=== PATIENT | male | born 1990 | race Hispanic/Latino ===

== ENCOUNTER 2019-09-02 03:14 | Emergency (ER) | payer OTHER ==
[~2019-09-02] VITALS: Ht 165.1 cm; Wt 99.8 kg
[2019-09-02 04:28] LABS: INFLUENZAE A&B ANTIGEN (RAPID) NEGATIVE (NEGATIVE); STREPTOCOCCUS GRP A ANTIGEN POSITIVE (NEGATIVE)
--- NOTE | 2019-09-02 04:48 | Diagnostic Imaging Report ---
EXAMINATION: CHEST 2 VIEWS INDICATION: Fever, cough. COMPARISON: None FINDINGS: TUBES and LINES: None. LUNGS: Low lung volumes. There is no evidence of pneumonia or pulmonary edema. PLEURA: No pleural effusion or pneumothorax. HEART AND MEDIASTINUM: No cardiomegaly. Likely prominent pericardiac fat pad on the right. BONES AND SOFT TISSUES: No acute osseous lesion. Soft tissues are unremarkable. UPPER ABDOMEN: No free air under the diaphragm. IMPRESSION: No acute thoracic abnormality. Signed by: Dr. Emiliana Burgess MD on 09/02/2019 4:45 AM
[2019-09-02] MEDS: PENICILLIN G BENZATHINE LA 1.2 MU TBX IM STA (04:50)
== END 2019-09-02 05:15 | disposition home or self-care (01) ==
LOC: ER 03:14
DX: R05 Cough (principal); J02.0 Streptococcal pharyngitis
CPT/HCPCS: 71046; 83518; 87400; 99283; J0561

== ENCOUNTER 2019-11-07 15:59 | Emergency (ER) | payer OTHER ==
[~2019-11-07] VITALS: Ht 165.1 cm; Wt 99.8 kg
--- OUTSIDE RECORDS SUMMARY | 2019-11-07 16:03 | XMS REPORT ---
Author Author [facility] t Organization [facility] Address [address] [place] [address] Phone Unavailable Care Team Providers Care Grease Buffer Name Role Phone NONSTAFF PCP Unavailable Payers Payer Name Policy Type Policy Number Effective Date Expiration Date S ource Problems This patient has no known problems. Allergies, Adverse Reactions, Alerts Allergy Name Allergy Type Status Severity Reaction(s) Onset Date Inacti ve Date Treating Clinician Comments Source No Known Allergies DA Active U 2019-07-27 00:00:00 [facility] No Known Allergies DA Active U 2018-04-04 00:00:00 [facility] No Known Allergies DA Active U 2016-04-20 00:00:00 [facility] Medications This patient has no known medications. Procedures Procedure Date / Time Performed Performing Clinician Sour e X-ray of chest, two views 2019-09-02 00:00:00 SEE MACKEY [facility] Encounters Start Date/Time End Date/Time Encounter Type Admission Type [facility] Care Department Encounter ID Source 2019-09-02 03:14:00 2019-09-02 05:15:00 Departed Emergency Room [facility] [id number] [facility] Results Test Description Test Time Test Comments Results Result Comments Source CHEST 2 VIEWS 2019-09-02 04:40:00 [facility] [address] [place], [place] [address] Patient Name: BATSHEVA DAMICO MR #: [id number] : 1990 Age/Sex: 29/M Req #: [id number] Adm Physician: Ordered by: SEE MACKEY DO Report #: [id number] Location: ER Room/Bed: Procedure: [id number] DX/CHEST 2 VIEWS Exam Date: 09/02/19 Exam Time: 414 REPORT STATUS: Signed EXAMINATION: CHEST 2 VIEWS INDICATION: Fever, cough. COMPARISON: None FINDINGS: TUBES and LINES: None. LUNGS: Low lung volumes. There is no evidence of pneumonia or pulmonary edema. PLEURA: No pleural effusion or pneumo thorax. HEART AND MEDIASTINUM: No cardiomegaly. Likely prominent pericardiac fat pad on the right. BONES AND SOFT TISSUES: No acute osseous lesion. Soft tissues are unremarkable. UPPER ABDOMEN: No free air under the diaphragm. IMPRESSION: No acute thoracic abnormality. Signed by: Dr. Tremaine Boston MD on 09/02/2019 4:45 AM Dictated By: TREMAINE BOSTON MD 4 Transcribed By: PATRICIO on 09/02/19444 COPY TO: SEE MACKEY DO Influenza Virus Types A,B Antigen 2019-09-02 04:28:00 Test Item Influenza Virus Types A,B Antigen (test code = 27328-8) [facility]IVE [facility] [id number] 04:28:00* Test Item Value Reference Range Interpretation Comments Group A Streptococcus Screen (test code = 17957-0) POSITIVE NEG ATIVE [facility] [id number] 20:34:00 * Test Item Value Reference Range Interpretation Comments SODIUM (test code = NA) 140 mmol/L 136-145 N POTASSIUM (test code = K) 3.6 mmol/L 3.5-5.1 N CHLORIDE (test code = CL) 108.0 mmol/L 98-107 H CARBON DIOXIDE (test code = CO2) 25.0 mmol/L 21-32 N ANION GAP (test code = GAP) 10.6 10-20 N GLUCOSE (test code = GLU) 83 mg/dL 74-106 N BLOOD UREA NITROGEN (test code = BUN) 13 mg/dL 7-18 N GLOMERULAR FILTRATION RATE (test code = GFR) > 60 mL/min >=60 Estimated GFR by using Modified MDRD formula.Chronic kidney disease is defined as either kidney damageor GFR <60 mL/min/1.73 m2 for >3 months. CREATININE (test code = CREAT) 0.70 mg/dL 0.7-1.3 N BUN/CREATININE RATIO (test code = BUN/CREA) 18.6 10-20 N CALCIUM (test code = CA) 8.8 mg/dL 8.5-10.1 N [id number] 20:34:00* Test Item Value Reference Range Interpretation Comments TROPONIN-I (test code = TROPI) <0.015 ng/mL 0-0.045 N BASIC METABOLIC [id number] 20:25:00* Test Item Value Reference Range Interpretation Comments SODIUM (test code = NA) 140 mmol/L 136-145 N POTASSIUM (test code = K) 3.6 mmol/L 3.5-5.1 N CHLORIDE (test code = CL) 108.0 mmol/L 98-107 H CARBON DIOXIDE (test code = CO2) mmol/L 21-32 ANION GAP (test code = GAP) 10-20 GLUCOSE (test code = GLU) mg/dL 74-106 BLOOD UREA NITROGEN (test code = BUN) mg/dL 7-18 GLOMERULAR FILTRATION RATE (test code = GFR) mL/min >=60 CREATININE (test code = CREAT) mg/dL 0.7-1.3 BUN/CREATININE RATIO (test code = BUN/CREA) 10-20 CALCIUM (test code = CA) 8.8 mg/dL 8.5-10.1 N [id number] 20:25:00* Test Item Value Reference Range Interpretation Comments TROPONIN-I (test code = TROPI) ng/mL 0-0.045 CBC W/O [id number] 20:17:00* Test Item Value Reference Range Interpretation Comments WHITE BLOOD CELL (test code = WBC) 11.0 K/mm3 4.5-12.5 N RED BLOOD CELL (test code = RBC) 5.47 mill/mm3 4.0-5.8 N HEMOGLOBIN (test code = HGB) 15.2 gram/dL 13.0-17.5 N HEMATOCRIT (test code = HCT) 46.5 % 42.0-52.0 N MEAN CELL VOLUME (test code = MCV) 85.0 fL 80-98 N MEAN CELL HGB (test code = MCH) 27.8 picogram 27.0-33.0 N MEAN CELL HGB CONCETRATION (test code = MCHC) 32.7 gram/dL 33.0-36. 0 L RED CELL DISTRIBUTION WIDTH (test code = RDW) 12.9 % 11.6-16. 2 N PLATELET COUNT (test code = PLT) 303 K/mm3 150-450 N MEAN PLATELET VOLUME (test code = MPV) 10.1 fL 6.7-11.0 N - CT HEAD/BRAIN W/O [id number] 19:07:00 Name: BATSHEVA DAMICO [facility] : 1990 Age/S: 29 / M [address] [facility] Unit #: [id number] Loc: [place] [address] Phys: Estuardo Gee MD Acct: [id number] Dis Date: Status: REG ER PHONE #: [phone] Exam Date: 07/27/2019 1850 FAX #: [phone] Reason: L sided numbness EXAMS: CPT CODE: [id number] CT HEAD/BRAIN W/O CONT 26438 REASON FOR EXAM: L sided numbness EXAM ORDER DATE: 07/27/2019 6:28 PM Ordering: Estuardo Gee MD Attending:Estuardo Gee MD Location: PROCEDURE: - CT HEAD/BRAIN W/O CONT COMPARISON: FINDINGS: CT images of the brain were obtained without IV contrast. Dose modulation, iterative reconstruction, and/or weight based adjustment of the MA/KV was utilized to reduce the radiation dose to as low as reasonably achievable. The brain parenchyma is within normal limits. The garcia-white matter delineation is unremarkable. The ventricles, cisterns, and sulci are unremarkable. There is no evidence of hemorrhage, mass, mass effect. There is no evidence of acute or old infarct. The calvarium is intact. IMPRESSION: Unremarkable brain. at 1907 Reported and signed by: Alejandro Mclean M.D. CC: Estuardo Gee MD Technologist:Arcelia Rodriguez RT(R); ISHAN Avery CTDI: DLP: Trnscb Date/Time: 07/27/2019 (1906) t.SDR.VTL Orig Print D/T: S: 07/27/2019 (1910) PAGE 1 Signed Report - XR CHEST 1 [id number] 18:54:00 FAX: Estuardo Gee MD [place]: St: REG Name: BATSHEVA BYRNE [facility] : [birth year] Age/S: 29/M [address] [facility] Unit #: [id number] Loc: [place] [address] Phys: Estuardo Gee MD Acct: [id number] Dis Date: Status: REG ER PHONE #: [phone] Exam Date: 07/27/2019 1845 FAX #: [phone] Reason: CHEST PAIN EXAMS: CPT CODE: [id number] XR CHEST 1 V 02556 REASON FOR EXAM: CHEST PAIN EXAM ORDER DATE: 07/27/2019 6:28 PM Ordering: Estuardo Gee MD Attending:Estuardo Gee MD Location: PROCEDURE: - XR CHEST 1 V COMPARISON: FINDINGS: Po rtable AP frontal view of the chest obtained at 6:45 PM shows clear lungs without evidence of consolidation. There is no evidence of effusion. The h eart size is within normal limits. Pulmonary vasculatures are unremarkable . IMPRESSION: No active disease. Electronically Sig winnie by Edison Mclean on 07/27/2019 at 1854 Reported and s igned by: Alejandro Mclean M.D. CC: Estuardo Gee MD Technologist: Ana SINGH(R) Trnscrd Date/Time/By: 07/27/2019 (1853) : By: Xavier Orig Print D/T: S: 07/27/2019 (1856) PAGE 1 Signed Report
--- NOTE | 2019-11-07 17:00 | Diagnostic Imaging Report ---
Chest, 1 view, 11/07/2019. History: Chest pressure. Comparison: None available. Findings: The cardiomediastinal silhouette and pulmonary vasculature are within normal limits for a portable exam. There is no focal consolidation or pleural effusion. There are no acute osseous or soft tissue abnormalities. Impression: No acute cardiopulmonary abnormality. Signed by: Ifeanyi King on 11/07/2019 4:57 PM
[2019-11-07 18:13] LABS: BASOPHILS # (AUTO) 0.1 (0.0-0.1); BASOPHILS % 0.6 % (0.0-1.0); EOSINOPHILS # (AUTO) 0.1 (0.0-0.4); EOSINOPHILS % 1.5 % (0.0-6.0); HEMOGLOBIN 15.1 g/dL (14.0-18.0); LYMPHOCYTES # (AUTO) 2.1 (1.0-3.2); LYMPHOCYTES % 25.3 % (18.0-39.1); MEAN CORPUSCULAR HEMOGLOBIN 27.1 pg (28-32); MEAN CORPUSCULAR HGB CONC 32.1 g/dL (31-35); MEAN CORPUSCULAR VOLUME 84.4 fL (81-99); MONOCYTES # (AUTO) 0.6 (0.2-0.8); MONOCYTES % 7.7 % (4.4-11.3); NEUTROPHILS # (AUTO) 5.3 (2.1-6.9); NEUTROPHILS % 64.4 % (38.7-80.0); PLATELET COUNT 323 x10e3/uL (140-360); RED BLOOD COUNT 5.57 x10e6/uL (4.3-5.7); RED CELL DISTRIBUTION WIDTH 13.8 % (11.7-14.4)
[2019-11-07 18:29] LABS: INR 0.88; PROTHROMBIN TIME 12.4 seconds (11.9-14.5)
[2019-11-07 18:30] LABS: PARTIAL THROMBOPLASTIN TIME 28.3 seconds (23.8-35.5)
[2019-11-07 18:39] LABS: ALANINE AMINOTRANSFERASE 39 IU/L (0-55); ALBUMIN 4.2 g/dL (3.5-5.0); ALBUMIN/GLOBULIN RATIO 1.2 (0.8-2.0); ALKALINE PHOSPHATASE 84 IU/L (40-150); ANION GAP 15.8 mmol/L (8-16); BLOOD UREA NITROGEN 12 mg/dL (7-26); BUN/CREATININE RATIO 14 (6-25); CALCIUM 9.4 mg/dL (8.4-10.2); CARBON DIOXIDE 22 mmol/L (22-29); CHLORIDE 108 mmol/L (98-107); CREATINE KINASE 203 IU/L (30-200); CREATININE, SERUM 0.86 mg/dL (0.72-1.25); EST GLOMERULAR FILTRATION RATE > 60 ML/MIN (60-); GLUCOSE 78 mg/dL (74-118); POTASSIUM 3.8 mmol/L (3.5-5.1); SODIUM 142 mmol/L (136-145)
--- NOTE | 2019-11-07 19:17 | Emergency Department Note ---
History of Present Illnes History of Present Illness Chief Complaint: Respiratory History of Present Illness This is a 29 year old male . Historian: Patient Arrival Mode: Car Enterprise Systems Architect Required: No Onset (how long ago): day(s) (started 2 days ago) Radiation: non-radiation Severity: mild Onset quality: gradual Duration (how long): day(s) Timing of current episode: constant Progression: unchanged Chronicity: new Relieving factors: none Exacerbating factors: none Associated symptoms: shortness of breath, other (left arm, hand and left leg tingling) Treatments prior to arrival: none Past Medical/Family History Physician Review I have reviewed the patient's past medical and family history. Any updates have been documented here. Past Medical History Recent Fever: No Clinical Suspicion of Infectio: No New/Unexplained Change in Ment: No Past Medical History: None Past Surgical History: None Social History Smoking Cessation: Never Smoker Any Illegal Drug Use: No TB Exposure/Symptoms: No Physically hurt or threatened: No Family History Family history of heart diseas: No Other Last Tetanus: UNK Review of Systems Review of Systems Constitutional: no symptoms EENTM: no symptoms Cardiovascular: no symptoms (left side), chest pain Respiratory: no symptoms Gastrointestinal: no symptoms Genitourinary: no symptoms Musculoskeletal: no symptoms, other (left arm,hand and left leg tingling) Neurological: no symptoms Psychological: no symptoms Endocrine: no symptoms Hematological/Lymphatic: no symptoms Review of other systems All other systems reviewed and negative. Physical Exam Related Data Allergies: Coded Allergies: No Known Allergies (Unverified , 09/02/19) Triage Vital Signs Vital Signs Date Time Temp Pulse Resp B/P (MAP) Pulse Ox O2 Delivery O2 Flow Rate FiO2 11/07/19 16:11 98.9 88 18 159/81 98 Physical Exam CONSTITUTIONAL Constitutional: well-developed, well-nourished HENT HENT: normocephalic, atraumatic, oropharynx clear/moist, nose normal HENT L/R: left ext ear normal, right ext ear normal EYES Eyes: PERRL, conjunctivae normal NECK Neck: ROM normal PULMONARY Pulmonary: effort normal, breath sounds normal CARDIOVASCULAR Cardiovascular: regular rhythm, heart sounds normal, capillary refill normal, normal rate GASTROINTESTINAL Abdominal: soft, nontender, bowel sounds normal GENITOURINARY Genitourinary: exam deferred SKIN Skin: warm, dry MUSCULOSKELETAL Musculoskeletal: ROM normal NEUROLOGICAL Neurological: alert, oriented x 3, no gross motor or sensory deficits PSYCHOLOGICAL Psychological: mood/affect normal, judgement normal Results Laboratory Lab results reviewed: Yes Imaging Imaging results reviewed: Yes Procedures 12 Lead ECG Interpretation Enterprise Systems Architect: Interpreted by ED physician (YANA) Date: November 07, 2019 Time: 17:[address] JUSTICE tracings: reviewed Rhythm: sinus rhythm Clinical Impression: normal ECG Critical Care Time Subsequent provider I assumed direction of critical care for this patient from another provider of my specialty. Assessment & Plan Assessment & Plan Problems: (1) Chest wall pain Assessment & Plan PATIENT IN FROM HOME WITH COMPLAINTS OF CHEST PRESSURE AND SHORTNESS OF BREATH, AND NUMBNESS AND TINGLING TO LEFT ARM , HAND AND LEG X 2 DAYS; PATIENT DENIES PAIN, CURRENT OCCASIONAL SMOKER, APPEARS IN NO DISTRESS, RESP EVEN AND NONLABORED, RATES PAIN 0/[address] MILLAN PATIENT PRESENTATION,EXAM AND PLAN OF CARE. AGREES WITH TREATMENT PLAN Reassessment Reassessment time: 18:30 Reassessment PATIENT IS A 29 YEAR OLD MALE THAT PRESENTS WITH CHEST PRESSURE AND LEFT HAND AND LEG TINGLING X 2-[address] MILLAN ALSO ASSESSED PATIENT WHILE IN TRIAGE. AWAITING ALL RESULTS DISCUSSED ALL RESULTS WITH DR MILLAN AND PATIENT- OK TO DC HOME TO FU WITH PCP, PATIENT STATES HE DOES NOT HAVE A PCP -WILL GIVE PATIENT SEVERAL OPTIONS Depart Disposition: HOME, SELF-CARE Last Vital Signs Date Time Temp Pulse Resp B/P (MAP) Pulse Ox O2 Delivery O2 Flow Rate FiO2 11/07/19 16:11 98.9 88 18 159/81 98 HASMUKH MASON NP November 07, 2019 16:20
[2019-11-07 19:46] VITALS: BP 133/72
== END 2019-11-07 19:46 | disposition home or self-care (01) ==
LOC: ER 15:59
DX: R06.02 Shortness of breath (principal); R07.89 Other chest pain; R20.2 Paresthesia of skin; F17.210 Nicotine dependence, cigarettes, uncomplicated
CPT/HCPCS: 36415; 71045; 80053; 82550; 82553; 84484; 85025; 85610; 85730; 93005; 99284